=== PATIENT | male | born 1950 | race Caucasian/White ===

== ENCOUNTER → 2023-11-10 | Outpatient (REF) | payer SELFPAY ==
[2023-11-10 07:56] LABS: Absolute Lymphocyte Count 1.39 X10^3/uL (0.83-4.51); Absolute Neutrophil Count 7.8 X10^3/uL (2.0-7.7); Basophil# 0.08 X10^3/uL; Basophil% 0.7 % (0-1); Eosinophil# 0.23 X10^3/uL; Eosinophils% 2.1 % (0-5); Hemoglobin 9.7 g/dL (13.0-16.5); Lymphocyte # 1.39 X10^3/ul (0.83-4.51); Lymphocyte % 12.8 % (19-41); Mean Corp Hgb Conc 30.3 g/dL (32-36); Mean Corpuscular Hgb 28.5 pg (27.0-32.0); Mean Corpuscular Volume 94.1 fL (80-94); Mean Platelet Vol. 11.7 fl (6.2-12.0); Monocyte# 1.21 X10^3/uL; Monocyte% 11.2 % (0-10); NRBC Flagged by Analyzer 0 % (0-5); Neutrophil # 7.83 X10^3/uL (2.7-7.7); Neutrophil % 72.2 % (47-70); Platelet Count 261 K/mm3 (150-450); RBC Distribution Width CV 14.7 % (11.6-14.6); RBC Distribution Width SD 50.5 fl (35.1-43.9); White Blood Count 10.9 K/mm3 (4.4-11.0)
[2023-11-10 08:19] LABS: Anion Gap 4 (5-15); BUN 54 mg/dL (7-18); BUN/Creat Ratio 24.9 RATIO (10-20); Calcium,Total 9.1 mg/dL (8.5-10.1); Chloride 111 mmol/L (98-107); Cholesterol 236 mg/dL (200); Creatinine, Serum 2.17 mg/dL (0.70-1.30); EST Glomerular Filtration Rate 32 mL/min (>60); Est Glom Filt Rate - Afr Amer 39 mL/min (>60); Glucose 71 mg/dL (74-106); High Density Lipoprotein 51 mg/dL; Potassium 4.6 mmol/L (3.5-5.1); Sodium Level 140 mmol/L (136-145); Triglycerides 67 mg/dL; Very Low Density Lipoprotein 13 mg/dL (5-40)
[2023-11-10 10:18] LABS: Vitamin B12 349 pg/mL (211-911); Vitamin D,25 Hydroxy 22.4 ng/mL
[2023-11-10 20:53] LABS: Hemoglobin A1c 10.6 % (3.8-5.6)
== END ==
LOC: OLS.SW 05:00
PROVIDERS: Visit Provider Internal Medicine
DX: J44.9 Chronic obstructive pulmonary disease, unspecified (principal); I10 Essential (primary) hypertension; E78.5 Hyperlipidemia, unspecified; N18.30 Chronic kidney disease, stage 3 unspecified; Z79.899 Other long term (current) drug therapy
CPT/HCPCS: 36415; 80048; 80061; 82306; 82607; 83036; 85025

== ENCOUNTER → 2023-12-06 | Outpatient (REF) | payer MEDICAID, SELFPAY ==
[2023-12-06 09:08] LABS: Anion Gap 4 (5-15); BUN 51 mg/dL (7-18); BUN/Creat Ratio 20.6 RATIO (10-20); Calcium,Total 9.2 mg/dL (8.5-10.1); Chloride 109 mmol/L (98-107); Creatinine, Serum 2.47 mg/dL (0.70-1.30); EST Glomerular Filtration Rate 27 mL/min (>60); Est Glom Filt Rate - Afr Amer 33 mL/min (>60); Glucose 78 mg/dL (74-106); Potassium 4.6 mmol/L (3.5-5.1); Sodium Level 140 mmol/L (136-145)
== END | disposition home or self-care (01) ==
LOC: OLS.SW 05:55
PROVIDERS: Referring Provider Internal Medicine; Visit Provider Internal Medicine
DX: J44.9 Chronic obstructive pulmonary disease, unspecified (principal)
CPT/HCPCS: 36415; 80048

== ENCOUNTER → 2024-01-12 | Outpatient (REF) | payer MEDICAID, SELFPAY ==
[2024-01-12 07:54] LABS: Absolute Lymphocyte Count 0.94 X10^3/uL (0.83-4.51); Absolute Neutrophil Count 6.1 X10^3/uL (2.0-7.7); Basophil# 0.03 X10^3/uL; Basophil% 0.4 % (0-1); Eosinophil# 0.26 X10^3/uL; Eosinophils% 3.2 % (0-5); Hematocrit 33.5 % (40-54); Hemoglobin 10.3 g/dL (13.0-16.5); Lymphocyte # 0.94 X10^3/ul (0.83-4.51); Lymphocyte % 11.5 % (19-41); Mean Corp Hgb Conc 30.7 g/dL (32-36); Mean Corpuscular Hgb 26.8 pg (27.0-32.0); Mean Platelet Vol. 11.8 fl (6.2-12.0); Monocyte# 0.83 X10^3/uL; Monocyte% 10.1 % (0-10); NRBC Flagged by Analyzer 0 % (0-5); Neutrophil # 6.09 X10^3/uL (2.7-7.7); Neutrophil % 74.4 % (47-70); Platelet Count 280 K/mm3 (150-450); RBC Distribution Width CV 14.7 % (11.6-14.6); RBC Distribution Width SD 47.5 fl (35.1-43.9); Red Blood Count 3.85 M/mm3 (4.6-6.2); White Blood Count 8.2 K/mm3 (4.4-11.0)
[2024-01-12 08:19] LABS: Anion Gap 4 (5-15); BUN 48 mg/dL (7-18); BUN/Creat Ratio 18.8 RATIO (10-20); Chloride 113 mmol/L (98-107); Creatinine, Serum 2.55 mg/dL (0.70-1.30); EST Glomerular Filtration Rate 26 mL/min (>60); Est Glom Filt Rate - Afr Amer 32 mL/min (>60); Glucose 38 mg/dL (74-106); Potassium 4.8 mmol/L (3.5-5.1); Sodium Level 140 mmol/L (136-145)
== END | disposition home or self-care (01) ==
LOC: OLS.SW 05:00
PROVIDERS: Visit Provider Internal Medicine
DX: G93.41 Metabolic encephalopathy (principal)
CPT/HCPCS: 36415; 80048; 85025

== ENCOUNTER → 2024-02-01 | Outpatient (REF) | payer MEDICAID, SELFPAY ==
[2024-02-01 08:27] LABS: Mean Corpuscular Hgb 25.7 pg (27.0-32.0); Mean Corpuscular Volume 85.7 fL (80-94); Platelet Count 267 K/mm3 (150-450); RBC Distribution Width SD 47.2 fl (35.1-43.9); White Blood Count 7.3 K/mm3 (4.4-11.0)
== END | disposition home or self-care (01) ==
LOC: OLS.SW 05:00
PROVIDERS: Visit Provider Internal Medicine
DX: K92.0 Hematemesis (principal)
CPT/HCPCS: 36415; 85027

== ENCOUNTER → 2024-02-07 | Outpatient (REF) | payer MEDICAID, SELFPAY ==
[2024-02-07 09:18] LABS: Anion Gap 5 (5-15); BUN 58 mg/dL (7-18); Calcium,Total 9.4 mg/dL (8.5-10.1); Chloride 101 mmol/L (98-107); Creatinine, Serum 2.64 mg/dL (0.70-1.30); EST Glomerular Filtration Rate 25 mL/min (>60); Est Glom Filt Rate - Afr Amer 31 mL/min (>60); Glucose 115 mg/dL (74-106); Magnesium 1.8 mg/dL (1.6-2.6); Potassium 4.8 mmol/L (3.5-5.1); Sodium Level 137 mmol/L (136-145); Uric Acid 7.2 mg/dL (3.5-7.2)
== END | disposition home or self-care (01) ==
LOC: OLS.SW 05:00
PROVIDERS: Visit Provider Internal Medicine
DX: G93.41 Metabolic encephalopathy (principal)
CPT/HCPCS: 36415; 80048; 83735; 84550

== ENCOUNTER → 2024-02-10 | Outpatient (REF) | payer MEDICAID, SELFPAY ==
[2024-02-10 08:19] LABS: Anion Gap 4 (5-15); BUN 60 mg/dL (7-18); BUN/Creat Ratio 21.6 RATIO (10-20); Calcium,Total 9.1 mg/dL (8.5-10.1); Chloride 105 mmol/L (98-107); Creatinine, Serum 2.78 mg/dL (0.70-1.30); EST Glomerular Filtration Rate 24 mL/min (>60); Est Glom Filt Rate - Afr Amer 29 mL/min (>60); Glucose 149 mg/dL (74-106); Potassium 5.1 mmol/L (3.5-5.1); Sodium Level 140 mmol/L (136-145)
== END | disposition home or self-care (01) ==
LOC: OLS.SW 05:00
PROVIDERS: Visit Provider Internal Medicine
DX: R62.7 Adult failure to thrive (principal)
CPT/HCPCS: 36415; 80048

== ENCOUNTER → 2024-02-14 | Outpatient (REF) | payer MEDICAID, SELFPAY ==
[2024-02-14 10:16] LABS: Anion Gap 5 (5-15); BUN 44 mg/dL (7-18); BUN/Creat Ratio 18.8 RATIO (10-20); Calcium,Total 9.5 mg/dL (8.5-10.1); Chloride 102 mmol/L (98-107); Creatinine, Serum 2.34 mg/dL (0.70-1.30); EST Glomerular Filtration Rate 29 mL/min (>60); Est Glom Filt Rate - Afr Amer 35 mL/min (>60); Glucose 134 mg/dL (74-106); Magnesium 2.1 mg/dL (1.6-2.6); Potassium 4.8 mmol/L (3.5-5.1); Sodium Level 136 mmol/L (136-145); Uric Acid 7.1 mg/dL (3.5-7.2)
== END | disposition home or self-care (01) ==
LOC: OLS.SW 05:00
PROVIDERS: Visit Provider Internal Medicine
DX: J44.9 Chronic obstructive pulmonary disease, unspecified (principal); E11.9 Type 2 diabetes mellitus without complications
CPT/HCPCS: 36415; 80048; 83735; 84550

== ENCOUNTER → 2024-03-01 | Outpatient (REF) | payer MEDICAID, SELFPAY ==
[2024-03-01 09:54] LABS: Hemoglobin A1c 6.7 % (3.8-5.6)
== END | disposition home or self-care (01) ==
LOC: OLS.SW 05:00
PROVIDERS: PCP Internal Medicine; Visit Provider Internal Medicine
DX: E11.9 Type 2 diabetes mellitus without complications (principal)
CPT/HCPCS: 36415; 83036

== ENCOUNTER → 2024-03-07 | Outpatient (REF) | payer MEDICAID, SELFPAY ==
[2024-03-07 08:32] LABS: Hematocrit 23.9 % (40-54); Hemoglobin 7.1 g/dL (13.0-16.5); Mean Corp Hgb Conc 29.7 g/dL (32-36); Mean Corpuscular Hgb 24.9 pg (27.0-32.0); Mean Corpuscular Volume 83.9 fL (80-94); Mean Platelet Vol. 11.5 fl (6.2-12.0); Platelet Count 302 K/mm3 (150-450); RBC Distribution Width CV 17.2 % (11.6-14.6); RBC Distribution Width SD 52.7 fl (35.1-43.9); Red Blood Count 2.85 M/mm3 (4.6-6.2); White Blood Count 9.7 K/mm3 (4.4-11.0)
[2024-03-07 08:38] LABS: Anion Gap 5 (5-15); BUN 62 mg/dL (7-18); BUN/Creat Ratio 22.2 RATIO (10-20); Chloride 104 mmol/L (98-107); Creatinine, Serum 2.79 mg/dL (0.70-1.30); EST Glomerular Filtration Rate 24 mL/min (>60); Est Glom Filt Rate - Afr Amer 29 mL/min (>60); Glucose 116 mg/dL (74-106); Potassium 4.9 mmol/L (3.5-5.1); Sodium Level 135 mmol/L (136-145)
== END | disposition home or self-care (01) ==
LOC: OLS.SW 05:00
PROVIDERS: PCP Internal Medicine; Visit Provider Internal Medicine
DX: G93.41 Metabolic encephalopathy (principal); E11.65 Type 2 diabetes mellitus with hyperglycemia
CPT/HCPCS: 36415; 80048; 85027

== ENCOUNTER 2024-03-09 00:39 | Emergency (ER) | payer MEDICAID, SELFPAY ==
[2024-03-09] VITALS (9 sets, daily range): BP systolic 116–166; BP diastolic 55–70; PULSE 91–126; RESP 18–30; TEMP 35.9–36.3; O2SAT 91–99; BMI 26.7
--- NOTE | 2024-03-09 01:01 | RAD_ITS ---
INDICATION: dyspnea EXAMINATION/TECHNIQUE: X-RAY - XR Chest 2 Views COMPARISON: None. FINDINGS: LINES/DEVICES: None. LUNGS: Lungs symmetrically hyperexpanded. Mild diffuse interstitial thickening. Linear and patchy airspace opacities in the left lung base. Small bilateral pleural effusions. No pneumothorax. MEDIASTINUM AND CARDIOVASCULAR STRUCTURES: Borderline cardiomegaly. BONES AND SOFT TISSUES: Unremarkable. RAD/Chest PA and Lateral IMPRESSION: Hyperexpansion compatible with chronic obstructive pulmonary disease. Cardiomegaly with mild interstitial edema and small bilateral effusions. Cannot exclude pneumonia in the left lung base. Correlate with exam. Electronically Signed: Buck Isbell MD at 1:46 EDT ,
[2024-03-09 01:11] LABS: Absolute Lymphocyte Count 1.31 X10^3/uL (0.83-4.51); Absolute Neutrophil Count 9.6 X10^3/uL (2.0-7.7); Basophil# 0.05 X10^3/uL; Basophil% 0.4 % (0-1); Eosinophil# 0.27 X10^3/uL; Eosinophils% 2.2 % (0-5); Hematocrit 24.3 % (40-54); Hemoglobin 7.3 g/dL (13.0-16.5); Lymphocyte # 1.31 X10^3/ul (0.83-4.51); Lymphocyte % 10.4 % (19-41); Mean Corpuscular Volume 83.2 fL (80-94); Monocyte# 1.19 X10^3/uL; Monocyte% 9.5 % (0-10); NRBC Flagged by Analyzer 0 % (0-5); Neutrophil # 9.64 X10^3/uL (2.7-7.7); Neutrophil % 76.8 % (47-70); Platelet Count 309 K/mm3 (150-450); RBC Distribution Width CV 17.1 % (11.6-14.6); Red Blood Count 2.92 M/mm3 (4.6-6.2); White Blood Count 12.6 K/mm3 (4.4-11.0)
[2024-03-09] MEDS: Ipratropium/Albuterol Sulfate 3 ML AMPUL.NEB INHALATION ×2 (01:19→03:07)
[2024-03-09 01:32] LABS: Anion Gap 7 (5-15); BUN 71 mg/dL (7-18); BUN/Creat Ratio 22.8 RATIO (10-20); Calcium,Total 8.6 mg/dL (8.5-10.1); Chloride 100 mmol/L (98-107); Creatinine, Serum 3.11 mg/dL (0.70-1.30); EST Glomerular Filtration Rate 21 mL/min (>60); Est Glom Filt Rate - Afr Amer 25 mL/min (>60); Estimated Creatinine Clearance 19.09 ml/min; Glucose 244 mg/dL (74-106); Magnesium 2.1 mg/dL (1.6-2.6); Sodium Level 133 mmol/L (136-145)
[2024-03-09] MEDS: Doxycycline 100 MG CAPSULE PO (02:23)
--- NOTE | 2024-03-09 03:22 | CPS ---
[0307] x1 Duoneb given to pt. in ER. Pre-tx: HR=94, RR=26 with diminished lung sounds. Post-tx: HR=96, RR=24 with clearer upper lobes, but pt. still has diminished lung sounds in right middle lobe and bases.
--- NOTE | 2024-03-09 04:22 | EDS_ITS ---
HPI History of Present Illness Chief Complaint: Shortness of Breath Informant: patient, EMS and SNF Narrative Narrative: Patient is a 73-year-old male who is a DNR comfort care only from the skilled nursing. He has a past medical history of anxiety and depression as well as diabetes congestive heart failure and COPD. Reportedly this evening he was coughing and feeling short of breath and skilled nursing felt he did not look well and therefore sent him to the hospital for evaluation. halfway states that they have also been checking his hemoglobin and has been slowly decreasing. They state his value yesterday was 7.1 and they are planning to recheck it today and if it remains stable or drops to potentially give a blood transfusion. Therefore based on his recent anemia as well as history of COPD and the fact he is feeling increased shortness of breath he was sent in for evaluation [facility] Medical History Chronic kidney disease Atherosclerotic cardiovascular disease GERD (gastroesophageal reflux disease) Anxiety Hyperlipidemia Myocardial disease Depression Diabetes Metabolic encephalopathy COPD (chronic obstructive pulmonary disease) Home Medications ?Medication ?Instructions ?Recorded ?Last Taken ?Type acetaminophen 325 mg tablet (Aphen) 650 mg PO Q4H PRN fever or pain 03/09/24 Unknown History acetaminophen 650 mg rectal [address] Q4H PRN fever or pain 03/09/24 Unknown History suppository albuterol sulfate 90 mcg/actuation 1 puff inhalation Q6H PRN 03/09/24 Unknown History aerosol inhaler shortness of breath or wheezing aluminum-magnesium hydroxide 200 5 ml PO Q4H PRN dyspepsia 03/09/24 Unknown History mg-200 mg/5 mL oral suspension aspirin 81 mg tablet,delayed 81 mg PO DAILY 03/09/24 Unknown History release (Adult Aspirin Regimen) bisacodyl 10 mg rectal suppository [address] DAILY PRN constipation 03/09/24 Unknown History buspirone 5 mg tablet 5 mg PO BID 03/09/24 Unknown History dextrose 40 % oral gel (Gluco 10 g PO Q15M PRN hypoglycemia 03/09/24 Unknown History Burst) divalproex 125 mg tablet,delayed 125 mg PO QHS 03/09/24 Unknown History release doxycycline hyclate 100 mg capsule 100 mg PO BID 10 days #20 caps 03/09/24 Unknown Rx escitalopram oxalate 5 mg tablet 5 mg PO DAILY 03/09/24 Unknown History fluticasone 500 mcg-salmeterol 50 1 ea inhalation BID 03/09/24 Unknown History mcg/dose blistr powdr for inhalation (Advair Diskus) furosemide 40 mg tablet 40 mg PO MOWEFR 03/09/24 Unknown History glucagon HCl 1 mg solution for 1 mg IM Q20M PRN hypoglycemia 03/09/24 Unknown History injection (Glucagon (HCl) Emergency Kit) guaifenesin 100 mg/5 mL oral 200 mg PO Q4H PRN cough 03/09/24 Unknown History liquid (Adult Tussin Chest Congestion) insulin glargine 100 unit/mL (3 24 unit subcut DAILY 03/09/24 Unknown History mL) subcutaneous pen (Lantus Solostar U-100 Insulin) insulin lispro 100 unit/mL 3 unit subcut ACHS 03/09/24 Unknown History subcutaneous pen (Humalog KwikPen (U-100) Insulin) insulin lispro 100 unit/mL See Protocol subcut ACHS 03/09/24 Unknown History subcutaneous solution (Humalog U-100 Insulin) magnesium hydroxide 400 mg/5 mL 30 ml PO DAILY PRN constipation 03/09/24 Unknown History oral suspension (Dulcolax (magnesium hydroxide)) melatonin 10 mg tablet 10 mg PO QHS 03/09/24 Unknown History ondansetron HCl 4 mg tablet 4 mg PO Q8H PRN PRN nausea and 03/09/24 Unknown History vomiting pantoprazole 40 mg tablet,delayed 40 mg PO DAILY 03/09/24 Unknown History release sodium phosphates 19 gram-[address] DAILY PRN constipation 03/09/24 Unknown History gram/118 mL enema (Enema) tamsulosin 0.4 mg capsule 0.4 mg PO QHS 03/09/24 Unknown History Allergy/AdvReac Type Severity Reaction Status Date / Time semaglutide Allergy Unknown PT UNSURE Verified 03/09/24 00:57 OF REACTION Social History Smoking Status: Former smoker ROS ROS ED ROS Narrative Please note review of systems may be unreliable as patient has a past medical history of metabolic encephalopathy Constitutional Constitutional ED: Denies chills or fever(s) Eyes Eyes: Denies change in vision ENT ENT ED: Denies rhinorrhea or sore throat Cardiovascular Cardiovascular: Denies chest pain Respiratory/Chest Respiratory/Chest: Reports cough and dyspnea Gastrointestinal Gastrointestinal: Denies abdominal pain, diarrhea, nausea or vomiting Genitourinary Genitourinary ED: Denies dysuria or hematuria Musculoskeletal Musculoskeletal: Denies myalgias Integumentary Denies rash Neurologic Neurologic: Denies headache(s) Psychiatric Psychiatric: Reports anxiety Hematologic/Lymphatic Hematologic/Lymphatic: Denies easy bleeding or easy bruising EXAM Physical Exam Const Vital Signs: 03/09/24 00:42 03/09/24 00:57 03/09/24 01:19 Temperature 96.6 F L Temperature Source Temporal Pulse Rate 126 H 91 Respiratory Rate 30 H 18 Respiratory Effort Short of Breath Respiratory Pattern Normal Blood Pressure 159/62 H Blood Pressure Mean 94 Blood Pressure Source Blood Pressure Position Blood Pressure Location Pulse Ox 99 Oxygen Delivery Method Nasal Cannula Oxygen Flow Rate (L/min) 2 03/09/24 02:24 03/09/24 03:11 03/09/24 03:26 Temperature 97.4 F L 97.2 F L Temperature Source Temporal Temporal Pulse Rate 93 108 H 107 H Respiratory Rate 20 H 25 H 23 H Respiratory Effort Respiratory Pattern Blood Pressure 139/62 H 116/55 L 152/62 H Blood Pressure Mean 87 75 92 Blood Pressure Source Monitor Monitor Blood Pressure Position Sitting Semi-Fowlers Blood Pressure Location Right Arm Right Arm Pulse Ox 91 92 97 Oxygen Delivery Method Room Air Room Air Nasal Cannula Oxygen Flow Rate (L/min) 2 03/09/24 04:00 Temperature Temperature Source Pulse Rate 95 Respiratory Rate 30 H Respiratory Effort Respiratory Pattern Blood Pressure 166/70 H Blood Pressure Mean 102 Blood Pressure Source Blood Pressure Position Blood Pressure Location Pulse Ox 96 Oxygen Delivery Method Nasal Cannula Oxygen Flow Rate (L/min) 2 Positive well nourished and well developed General Appearance ED: well developed and pallor HEENT HEENT Narrative: No tongue or lip swelling no oral lesions no airway edema or compromise No signs of infection noted in the posterior pharynx Eyes PERRL and EOMs intact bilaterally Eyes Narrative: Positive subconjunctival pallor noted General Eye ED: Yes pale conjunctiva; Negative for scleral icterus Neck supple and no JVD Neck Narrative: No nuchal rigidity or meningeal signs Resp Resp Narrative: Patient is tachypneic with slight accessory muscle use. Breath sounds are diminished throughout and there is faint rhonchi noted in the left lower lobe. Cardio regular rhythm Rate: tachycardic and other Other Details: Tachycardic rate with regular rhythm GI normal to inspection, nondistended, normoactive bowel sounds, non-tender, non- distended and no masses GI Narrative: No voluntary guarding or rigidity or pulsatile mass No fluid wave Auscultation: normoactive bowel sounds Palpation: soft Extremity Extremity Narrative: +2-3 pitting edema to the bilateral lower extremities that is equal and Negative Homans' sign bilaterally Neuro CN's II-XII intact bilaterally Neuro Narrative: Patient is at his baseline mental status with cranial nerves II through XII grossly intact and no focal neurologic deficit Sensorium / Orientation: alert Psych Psych Narrative: Patient has a nervous/anxious affect without homicidal or suicidal ideation Mood & Affect: anxious Skin General Skin Exam: pallor MDM MDM MDM Narrative Medical decision making narrative: Patient arrived to the ER tachycardic with mild tachypnea but was satting 98 to 100% on room air. He has known COPD but does not require supplemental oxygen at baseline. History and exam is consistent with congestive heart failure versus COPD exacerbation worsened by anxiety. Based on nursing report there is also concern for acute blood loss anemia. Basic labs are obtained and show a creatinine of 3.11 which is near his baseline and correlates with history of chronic kidney disease. His hemoglobin is 7.3 which is stable compared to the 7.1 that nursing reports the previous day. However his chart review reveals that his baseline hemoglobin is typically 9-10 and he has endorsed increased shortness of breath I will order 1 unit to be transfused at this time. His history and physical exam correlate more closely with congestive heart failure and COPD but he does have a slight white count and there is concern for left lower lobe pneumonia and this is where he has the most derangement and breath sounds on exam. Therefore I will place him on doxycycline secondary to this. However at this time he is not requiring supplemental oxygen and his vitals are stable and he is a DNR comfort care only and therefore there is no need for admission to the hospital and patient will be discharged back to the skilled nursing on doxycycline after his blood transfusion has completed History & Record Review Discussion w/independent historian: Patient Lab Data Attestation: I reviewed the patient's lab results. Labs: Laboratory Results - last 24 hr 03/09/24 00:47 WBC 12.6 H RBC 2.92 L Hgb 7.3 L Hct 24.3 L MCV 83.2 MCH 25.0 L MCHC 30.0 L RDW Std Deviation 52.0 H RDW Coeff of Rojelio 17.1 H Plt Count 309 MPV 11.0 Immature Gran % (Auto) 0.700 Neut % (Auto) 76.8 H Lymph % (Auto) 10.4 L [place] % (Auto) 9.5 Eos % (Auto) 2.2 Baso % (Auto) 0.4 Absolute Neuts (auto) 9.6 H Absolute Lymphs (auto) 1.31 Nucleated RBC % 0 Sodium 133 L Potassium 5.0 Chloride 100 Carbon Dioxide 26.0 Anion Gap 7 BUN 71 H Creatinine 3.11 H Estim Creat Clear Calc 19.09 Est GFR (MDRD) Af Amer 25 L Est GFR (MDRD) Non-Af 21 L BUN/Creatinine Ratio 22.8 H Glucose 244 H Calcium 8.6 Magnesium 2.1 Blood Type O POSITIVE Antibody Screen NEGATIVE Crossmatch See Detail Radiography Diagnostic Testing: Clinical Impression(s) from Imaging Studies Chest X-Ray 03/09/24 01:01 IMPRESSION: Hyperexpansion compatible with chronic obstructive pulmonary disease. Cardiomegaly with mild interstitial edema and small bilateral effusions. Cannot exclude pneumonia in the left lung base. Correlate with exam. Electronically Signed: Buck Isbell MD at 1:46 EDT Reading Location ID and State: [facility] / [place] Tel , Service support , Chest x-ray as interpreted by the emergency medicine physician reveals COPD changes with small bilateral pleural effusions and questionable infiltrate in the left lower lobe Discharge Plan Triage Chief Complaint: Shortness of Breath ED Provider: Venancio Caputo Dx/Rx/DC Orders Clinical Impression: Anemia, Congestive heart failure, COPD (chronic obstructive pulmonary disease), Anxiety, Chronic kidney disease, Insulin dependent diabetes mellitus Instructions: COPD: Wheezing and Chest Tightness, Heart Failure Dc, ED Anemia, Type Not Specified (Adult) Prescriptions: New doxycycline hyclate 100 mg capsule 100 mg PO BID 10 Days Qty: 20 0RF No Action acetaminophen 650 mg suppository [address] Q4H PRN (Reason: fever or pain) acetaminophen [Aphen] 325 mg tablet 650 mg PO Q4H PRN (Reason: fever or pain) fluticasone propion-salmeterol [Advair Diskus] 500-50 mcg/dose blister with device 1 ea inhalation BID albuterol sulfate 90 mcg/actuation HFA aerosol inhaler 1 puff inhalation Q6H PRN (Reason: shortness of breath or wheezing) aluminum-magnesium hydroxide 200-200 mg/5 mL suspension 5 ml PO Q4H PRN (Reason: dyspepsia) aspirin [Adult Aspirin Regimen] 81 mg tablet,delayed release (DR/EC) 81 mg PO DAILY bisacodyl 10 mg suppository [address] DAILY PRN (Reason: constipation) buspirone 5 mg tablet 5 mg PO BID divalproex 125 mg tablet,delayed release (DR/EC) 125 mg PO QHS Enema 19-7 gram/118 mL enema [address] DAILY PRN (Reason: constipation) glucagon HCl [Glucagon (HCl) Emergency Kit] 1 mg recon soln 1 mg IM Q20M PRN (Reason: hypoglycemia) Rx Instructions: until target blood sugar attained dextrose [Gluco Burst] 40 % gel 10 g PO Q15M PRN (Reason: hypoglycemia) Rx Instructions: until symptoms of low blood sugar are controlled guaifenesin [Adult Tussin Chest Congestion] 100 mg/5 mL liquid 200 mg PO Q4H PRN (Reason: cough) insulin lispro [Humalog KwikPen Insulin] 100 unit/mL insulin pen 3 unit subcut ACHS insulin lispro [Humalog U-100 Insulin] 100 unit/mL solution See Protocol subcut ACHS Protocol: 6. Sliding Scale Insulin Custom Condition: mg/dl range Dose/Route: Number of Units Condition: 180-200 Dose/Route: 2 Condition: 201-250 Dose/Route: 3 Condition: 251-300 Dose/Route: 4 Condition: 301-350 Dose/Route: 5 Condition: 351-400 Dose/Route: 6 Condition: 401-450 Dose/Route: 7 Protocol Text: Custom Sliding Scale insulin glargine [Lantus Solostar U-100 Insulin] 100 unit/mL (3 mL) insulin pen 24 unit subcut DAILY furosemide 40 mg tablet 40 mg PO MOWEFR escitalopram oxalate 5 mg tablet 5 mg PO DAILY melatonin 10 mg tablet 10 mg PO QHS magnesium hydroxide [Dulcolax (magnesium hydroxide)] 400 mg/5 mL suspension 30 ml PO DAILY PRN (Reason: constipation) tamsulosin 0.4 mg capsule 0.4 mg PO QHS pantoprazole 40 mg tablet,delayed release (DR/EC) 40 mg PO DAILY ondansetron HCl 4 mg tablet 4 mg PO Q8H PRN PRN (Reason: nausea and vomiting) Primary Care Provider: Ya Marsh Referrals: Ya Marsh MD [Primary Care Provider] - Activity Restrictions/Additional Instructions: Your x-ray shows changes consistent with COPD and congestive heart failure but there is question of potentially developing pneumonia so therefore take the antibiotic as directed to prevent this. Continue all your medications as directed by your doctor and return to the ER should you have any further concerns. Print Language: Faroese Disposition Disposition: Home, Self Care
--- NOTE | 2024-03-09 06:55 | ED.RN ---
Report called back to Bell at [facility], questions/concerns answered
== END 2024-03-09 06:36 | disposition home or self-care (01) ==
PROVIDERS: Emergency Provider Emergency Medicine; PCP Internal Medicine; Visit Provider Emergency Medicine
DX: E11.22 Type 2 diabetes mellitus with diabetic chronic kidney disease (principal); I50.9 Heart failure, unspecified; J44.9 Chronic obstructive pulmonary disease, unspecified; Z79.4 Long term (current) use of insulin; I25.10 Atherosclerotic heart disease of native coronary artery without angina pectoris; D64.9 Anemia, unspecified; N18.9 Chronic kidney disease, unspecified; F32.A Depression, unspecified; F41.9 Anxiety disorder, unspecified; Z66 Do not resuscitate; Z79.82 Long term (current) use of aspirin; Z79.899 Other long term (current) drug therapy; Z87.891 Personal history of nicotine dependence
CPT/HCPCS: 36430; 71046; 80048; 83735; 85025; 86850; 86900; 86901; 86920; 94640; 99283; J7030; P9016; A4216